=== PATIENT | male | born 1965 | race Caucasian/White ===

== ENCOUNTER 2016-12-26 17:57 | Emergency (ER) | payer OTHER ==
[2016-12-26 18:05] VITALS: RESP 16
--- NOTE | 2016-12-26 18:32 | EDPHY ---
H & P Stated Complaint: PT INJ L CALF PLAYING TENNIS SAT/DX WITH DVT BY US TODAY HPI/ROS: Chief complaint: DVT in left leg History of present illness: This is a 51-year-old male sent to the emergency department for evaluation and treatment of a DVT in his left leg. Patient was playing tennis this last Sunday, 4 days ago, when stepping up he felt a pop in his calf muscle. He saw an orthopedic doctor today who thought he had a tear in his calf muscles but sent him for an ultrasound to rule out DVT. Ultrasound did reveal a posterior tibial DVT as well as a hematoma. On my evaluation he complains of continued discomfort. He denies abnormal coolness or paresthesias in the leg. He denies chest pain, shortness of breath. No dizziness or lightheadedness. No history of blood clots. Review of systems: A 10 point review of systems was obtained and other than described above was negative - Personal History Current Tetanus/Diphtheria Vaccine: Unsure - Medical/Surgical History Hx Asthma: No Hx Chronic Respiratory Disease: No Hx Diabetes: No Hx Cardiac Disease: No Hx Renal Disease: No Hx Cirrhosis: No Hx Alcoholism: No Hx HIV/AIDS: No Hx Splenectomy or Spleen Trauma: No Other PMH: DENIES - Social History Smoking Status: Never smoked - Physical Exam Exam: General: Alert, nontoxic Skin: No abnormal lesions left lower leg Musculoskeletal: Patient is moving his left leg in the hip, elbow, ankle and digits well. Some discomfort with ambulating noted. Vascular: DP and PT pulses 2+. Neurologic: Sensation intact throughout the left leg. Constitutional: Initial Vital Signs Temperature (C) 36.5 C 12/26/16 18:02 Heart Rate 51 L 12/26/16 18:02 Respiratory Rate 16 12/26/16 18:02 Blood Pressure 128/79 H 12/26/16 18:02 O2 Sat (%) 96 12/26/16 18:02 O2 Delivery Mode Room Air Allergies/Adverse Reactions: No Known Allergies Allergy (Unverified 12/26/16 18:00) Home Medications: Medication Instructions Recorded NK [No Known Home Meds] 12/26/16 Medical Decision Making - Diagnostics Imaging Results: Imaging Impressions Extremity Venous Study 12/26/16 18:00 Impression: 1. Single segment posterior tibial vein with occlusive thrombus. This is presumed acute given recent instigating event. 2. Small calf hematoma at 4.8 x 2.2 x 0.4 cm. 3. Patent veins otherwise. Findings discussed with Syed Bello at 1710 hours, 12/26/2016. Final report concurs with initial preliminary interpretation. ED Course/Re-evaluation: I reviewed patient's outpatient ultrasound confirming a DVT and small hematoma Patient seen under the supervision of my secondary supervising physician Dr. Sumeet Stevens. Patient presents to the emergency department for evaluation and treatment of a DVT diagnosed on outpatient ultrasound. No initial evidence of serious complications from DVT including pulmonary embolisms. I discussed obtaining baseline blood studies and starting him on blood thinning medications. After talking with him the patient contacted the doctor who ordered the ultrasound, Dr. Bello. Apparently the doctor is going to call in a prescription for blood thinning medications to a local pharmacy for him and have him follow up in clinic for further blood testing later this week. Patient would like to be discharged without workup or treatment here. I did discuss this was against medical advice. I advised further evaluation and treatment to prevent complications. He is certainly competent to understand the potential risks of not being evaluating and treated here and the importance of closely following up with his doctor. Strict return precautions were given. Patient voiced understanding and agreement with plan. Departure - Departure Disposition: Against Medical Advice Clinical Impression: DVT (deep venous thrombosis) Qualifiers: DVT location: lower extremity Affected thrombotic vein of extremity: tibial Chronicity: acute Laterality: left Qualified Code(s): I82.442 - Acute embolism and thrombosis of left tibial vein Condition: Good Instructions: Deep Venous Thrombosis (ED) Additional Instructions: You were offered evaluation with blood studies after reviewing your ultrasound which shows a DVT and treatment with blood thinning medications. You declined. This is against medical advice. DVTs can be limb or life-threatening. If at any time you change your mind please return to the emergency room for recheck, if symptoms worsen return to the emergency room for recheck. Please follow-up with primary care doctor for recheck. Referrals: NONE *PRIMARY CARE P,. [Primary Care Provider] - As per Instructions Dana Figueroa MD [Medical Doctor] - As per Instructions
[2016-12-26 18:48] VITALS: BP 150/84; PULSE 55; TEMP 98.1; O2SAT 93
== END 2016-12-26 18:47 | disposition left against medical advice (07) ==
LOC: EDSTATUS 17:57
DX: I82.442 Acute embolism and thrombosis of left tibial vein (principal)